=== PATIENT | female | born 1945 | race Two or more races ===

== ENCOUNTER 2017-07-05 05:33 | Emergency (ER) | payer OTHER ==
[~2017-07-05] VITALS: Ht 157.5 cm; Wt 79.4 kg
[~2017-07-05 05:33] MED LIST: ATENOLOL50 MG; CATAFLAM50 MG PO; CELEBREX100 MG PO; CLARINEX5 MG/TAB PO; HYDROCHLOROTHIA25 MG; HYDROCHLOROTHIA25 MG PO; LEVOTHROID75 MCG PO; LEVOTHYROXINE75 MCG; NABUMETONE750 MG PO; NORTUSS-EX LIQ118 ML PO; ORPH100T PO; SEPTRA DS TABLE1 TAB PO; TENORMIN50 MG PO; ZOCOR20 MG; ZOCOR40 MG PO
== END 2017-07-05 13:05 | disposition home or self-care (01) ==
LOC: ER 05:33
DX: N39.0 Urinary tract infection, site not specified (principal); R31.0 Gross hematuria

== ENCOUNTER 2017-12-29 12:35 | Outpatient (CLI) | payer OTHER | END 2017-12-29 12:50 | disposition home or self-care (01) | LOC: NUCLEAR 12:35 | DX: M81.0 Age-related osteoporosis without current pathological fracture (principal); Z13.820 Encounter for screening for osteoporosis ==

== ENCOUNTER 2018-08-12 10:04 | Outpatient (CLI) | payer OTHER | END 2018-08-12 10:07 | disposition home or self-care (01) | LOC: SONOGRAMA 10:04 → MAMO-SONO 10:45 | DX: R31.9 Hematuria, unspecified (principal) ==

== ENCOUNTER 2018-08-16 11:22 | Outpatient (CLI) | payer OTHER | END 2018-08-16 13:47 | disposition home or self-care (01) | LOC: TOM 11:22 | DX: R31.29 Other microscopic hematuria (principal) ==

== ENCOUNTER → 2019-02-25 | Outpatient (CLI) | payer OTHER | END | disposition home or self-care (01) | LOC: RAD 10:35 | DX: J80 Acute respiratory distress syndrome (principal) ==

== ENCOUNTER 2020-12-05 09:53 | Outpatient (CLI) | payer OTHER | END 2020-12-05 10:00 | disposition home or self-care (01) | LOC: MAMO-SONO 09:53 | DX: N64.89 Other specified disorders of breast (principal); Z12.31 Encounter for screening mammogram for malignant neoplasm of breast ==

== ENCOUNTER 2020-12-20 13:03 | Outpatient (CLI) | payer OTHER | END 2020-12-20 13:10 | disposition home or self-care (01) | LOC: SONOGRAMA 13:03 → MAMO-SONO 13:15 | DX: N28.89 Other specified disorders of kidney and ureter (principal); R31.29 Other microscopic hematuria ==

== ENCOUNTER 2021-05-07 10:10 | Outpatient (CLI) | payer OTHER | END 2021-05-07 10:12 | disposition home or self-care (01) | LOC: SONOGRAMA 10:10 | DX: M25.512 Pain in left shoulder (principal); M75.102 Unspecified rotator cuff tear or rupture of left shoulder, not specified as traumatic ==

== ENCOUNTER 2021-08-31 10:41 | Outpatient (CLI) | payer OTHER | END 2021-08-31 10:48 | disposition home or self-care (01) | LOC: RAD 10:41 | DX: M25.551 Pain in right hip (principal) ==

== ENCOUNTER 2022-03-25 14:00 | Outpatient (CLI) | payer OTHER | END 2022-03-25 14:09 | disposition home or self-care (01) | LOC: RAD 14:00 | DX: M25.562 Pain in left knee (principal); M25.571 Pain in right ankle and joints of right foot ==

== ENCOUNTER 2022-06-20 12:56 | Emergency (ER) | payer OTHER ==
[~2022-06-20] VITALS: Ht 157.5 cm; Wt 79.4 kg
== END 2022-06-20 16:54 | disposition home or self-care (01) ==
LOC: ER 12:56
DX: R07.9 Chest pain, unspecified (principal); M54.9 Dorsalgia, unspecified; I10 Essential (primary) hypertension; E03.9 Hypothyroidism, unspecified; N39.0 Urinary tract infection, site not specified

== ENCOUNTER 2022-06-23 11:05 | Outpatient (CLI) | payer OTHER | END 2022-06-23 11:12 | disposition home or self-care (01) | LOC: RAD 11:05 | DX: M62.838 Other muscle spasm (principal); M62.830 Muscle spasm of back; M54.16 Radiculopathy, lumbar region; M85.9 Disorder of bone density and structure, unspecified ==

== ENCOUNTER 2022-07-02 14:00 | Outpatient (CLI) | payer OTHER | END 2022-07-02 14:03 | disposition home or self-care (01) | LOC: NUCLEAR 14:00 | DX: M81.0 Age-related osteoporosis without current pathological fracture (principal); M62.838 Other muscle spasm; M62.830 Muscle spasm of back; M54.16 Radiculopathy, lumbar region; M85.9 Disorder of bone density and structure, unspecified ==

== ENCOUNTER 2022-07-08 10:10 | Outpatient (CLI) | payer OTHER | END 2022-07-08 10:11 | disposition home or self-care (01) | LOC: NUCLEAR 10:10 | DX: R93.1 Abnormal findings on diagnostic imaging of heart and coronary circulation (principal); I65.29 Occlusion and stenosis of unspecified carotid artery; I77.9 Disorder of arteries and arterioles, unspecified ==

== ENCOUNTER 2024-05-27 10:30 | Outpatient (CLI) | payer OTHER | END 2024-05-27 10:37 | disposition home or self-care (01) | LOC: RAD 10:30 | PROVIDERS: ATTEND Internal Medicine Rheumatology | DX: M17.11 Unilateral primary osteoarthritis, right knee (principal); M17.12 Unilateral primary osteoarthritis, left knee ==